=== PATIENT | female | born 1975 | race American Indian/Alaskan Native ===

== ENCOUNTER 2019-10-19 14:10 | Outpatient (CLI) | payer SELFPAY ==
--- NOTE | 2019-10-19 14:26 | MM_ITS ---
WS: [id number] SCREENING DIGITAL MAMMOGRAM WITH CAD HISTORY: SCREENING COMPARISON: None available. Bilateral CC and MLO views submitted. Computer aided detection analyzed. Breast composition: There are scattered areas of fibroglandular density. No suspicious masses, microc alcifications or architectural distortion. MM/[place] [id number] IMPRESSION: BI-RADS: 1-Negative FOLLOW UP: 1 Year Follow-up
== END 2019-10-19 14:11 | disposition home or self-care (01) ==
PROVIDERS: PCP Family Medicine; Visit Provider Family Medicine
DX: Z12.31 Encounter for screening mammogram for malignant neoplasm of breast (principal)
CPT/HCPCS: 77067

== ENCOUNTER 2021-08-19 13:14 | Emergency (ER) | payer BC, SELFPAY ==
[2021-08-19 13:47] VITALS: BP 128/60; PULSE 76; RESP 18; O2SAT 97; BMI 32.1
--- NOTE | 2021-08-19 14:54 | ECG_ITS ---
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 Measurements Intervals [place] Rate: 70 P: 25 NH: 140 QRS: 25 QRSD: 145 T: 52 QT: 444 QTc: 481 Interpretive Statements SINUS RHYTHM RIGHT BUNDLE BRANCH BLOCK [120+ ms QRS DURATION, UPRIGHT V1, 40+ ms S IN I/aVL/V4/V5/V6] No previous ECG available for comparison Electronically Signed On 08-19-2021 22:32:52 CDT by Gisella Carmona M.D. [id number]
--- NOTE | 2021-08-19 14:54 | W.ED.SYNCOPE ---
HPI - Syncope General: Chief Complaint: Syncope Stated Complaint: SYNCOPE Time Seen by Provider: 08/19/21 13:27 History of Present Illness: 45 yo f states she was working at her father's house in a very hot area where the dryer vented and lost consciousness. Patient has amnesia until the ambulance arrived. She currently feels back to normal. Patient thinks she just got overheated and notes she had not had anything to eat/drink in the morning. SHe's completed 1L of NS. Patient does not want a work-up but is amenable to EKG. SHe says when she got here her legs felt numb. Now back to normal. Associated symptoms: Deny abdominal pain, chest pain, fever(s), headache(s) or nausea Review of Systems General: Reports: 10 or more systems reviewed and unremarkable except in HPI and below Const: Denies: fever(s), chills or body aches Eyes: Denies: change in vision ENMT: Denies: throat pain Card: Denies: chest pain or edema Resp: Denies: dyspnea or productive cough GI: Denies: abdominal pain, nausea, vomiting or diarrhea : Denies: flank pain, dysuria or urinary frequency Musc: Denies: neck pain, back pain, extremity pain or extremity swelling Skin/Breast: Denies: rash or erythema Neuro: Denies: headache(s), weakness in extremities, lack of coordination or difficulty walking PFS ED PFSH: Medical History (Updated 08/19/21 @ 15:23 by Abhijit Donaldson MD) Anxiety Chest pain Elevated blood pressure reading RBBB Stress Surgical History H/O laparoscopy Family History Father Diabetes Heart disease Hypertension Mother Diabetes Heart disease Hypertension Social History Smoking and tobacco status: never smoked Physical Exam Const: COMMON NORMALS: no limitations, alert and well nourished EXAM LIMITATIONS: no altered mental status GENERAL APPEARANCE: cooperative and well developed ORIENTATION/CONSCIOUSNESS: Yes awake; not confused HENMT: COMMON NORMALS: normocephalic, atraumatic, external ears normal and Normal external nose present HEAD & SCALP: normal to inspection, normocephalic and atraumatic FACE & SINUS: face symmetric NOSE: Normal external nose present EXTERNAL EAR: Yes external ears normal MOUTH: lip normal; no muffled voice Eye: COMMON NORMALS: EOMs intact bilaterally and conjunctivae normal GENERAL EYE: appearance normal, both eyes and all related structures CONJUNCTIVA: Yes conjunctivae normal Neck/C-Spine: COMMON NORMALS: no JVD GENERAL: Yes normal visual inspection and Yes trachea midline Resp: COMMON NORMALS: normal respiratory effort, No use of accessory muscles and clear to auscultation bilaterally EFFORT & INSPECTION: Yes able to speak in complete sentences and Yes symmetric chest movement AUSCULTATION: clear to auscultation bilaterally Cardio: COMMON NORMALS: no JVD, regular rate and regular rhythm RATE: regular rate RHYTHM: regular rhythm PERIPHERAL PULSES: radial pulses present GI: COMMON NORMALS: Soft to palpation INSPECTION: Yes normal to inspection PALPATION: Yes Soft to palpation, No Tenderness to palpation present (GI) and No Guarding due to palpation present (GI) Back/Pelvis: COMMON NORMALS: thoraco-lumbar ROM normal Extremity: COMMON NORMALS: normal to inspection GENERAL: Yes normal exam except as noted Neuro: COMMON NORMALS: moves all extremities, no focal motor deficits and no sensory deficits noted SENSORIUM/ORIENTATION: Yes alert Psych: COMMON NORMALS: mental status grossly normal, Normal thought process present, cooperative, normal affect and speech normal SPEECH: Yes normal speech THOUGHT PROCESS: Normal thought process present Skin: COMMON NORMALS: no rashes or lesions noted, turgor normal and no jaundice GENERAL SKIN EXAM: no rashes or lesions noted and turgor normal Course Vital Signs: Vital signs: Vital Signs Pulse Rate 76 08/19/21 13:47 Respiratory Rate 18 08/19/21 13:47 Blood Pressure 128/60 08/19/21 13:47 Pulse Oximetry 97 08/19/21 13:47 MDM - Syncope Medical Decision Making This is a well-appearing nontoxic pleasant 45-year-old female in no acute distress. Patient has recovered from her syncopal episode. She does not want work-up. I did convince her to get an EKG and this showed a normal sinus rhythm with a rate of 70, normal axis, no ectopy, right bundle branch block, no concerning ST segment elevations or depressions. She does report that she had not had much to eat or drink and was in a very hot environment making neurogenic syncope the most likely. However I did describe the differential diagnosis and that further work-up would be indicated. Patient reports she would rather follow-up with primary care provider. She does have a history of stress and anxiety and I am not sure whether this played into the situation today or not. She was taken off of her citalopram about 1 week ago. At this point I do not find any evidence of emergent condition. She screens negative for risk of DVT with the exception of BMI greater than 30. Discharge Plan Discharge Patient Disposition: Home Clinical Impression: Syncope and collapse, RBBB Condition: Stable Prescriptions: No Action multivitamin Tablet 1 tab PO DAILY 0RF Algal [place]-3 DHA 200 mg capsule PO 0RF citalopram 10 mg tablet 10 mg PO DAILY 0RF alprazolam 0.25 mg tablet 0.25 mg PO TID PRN (Reason: anxiety) 0RF tranexamic acid 650 mg tablet 650 mg PO BID PRN0RF metoprolol succinate 25 mg tablet extended release 24 hr 50 mg PO DAILY Qty: 180 3RF Discharge Orders: Discharge ED (Routine); Ordered 08/19/21 Ordered By: Abhijit Donaldson Referrals: Marcus Thurston MD [Primary Care Provider] - 1-3 days (SYncope. EKG NSR w/ RBBB. Didn't want further workup in ED.) Discharge Diet: Regular Discharge Activity: Increase activity as tolerated Patient Instructions: Opioid Safety Coding Level of Care Code ED Technical Support Manager for Brenda Hodges
[2021-08-19 15:23] VITALS: BP 120/89; O2SAT 96
== END 2021-08-19 15:49 | disposition home or self-care (01) ==
PROVIDERS: Emergency Provider Emergency Medicine; PCP Family Medicine
DX: R55 Syncope and collapse (principal); I45.10 Unspecified right bundle-branch block
CPT/HCPCS: 93005; 99283

== ENCOUNTER → 2021-10-09 15:30 | Outpatient (BNVA) | payer BC, SELFPAY | PROVIDERS: PCP Family Medicine; Visit Provider Obstetrics & Gynecology | DX: N93.9 Abnormal uterine and vaginal bleeding, unspecified (principal) | CPT/HCPCS: 84443; 85025; 88305 ==

== ENCOUNTER 2021-11-10 11:09 | Day surgery (SDC) | payer BC, SELFPAY ==
[2021-11-09 16:25] VITALS: BMI 34.2
[2021-11-10] VITALS (9 sets, daily range): BP systolic 131–170; BP diastolic 73–96; PULSE 68–83; RESP 14–18; TEMP 36.3–36.9; O2SAT 92–100
[2021-11-10 11:40] LABS: OR HCG Qualitative Urine Negative (Negative)
[2021-11-10] MEDS: sodium chloride 0.9% 1,000 ML 30 ML IV (11:48)
--- NOTE | 2021-11-10 12:29 | ANES.PREANE2 ---
Pre-Anesthetic Assessment Height/Weight: Height 1.7 m Weight 99.337 kg Temp Pulse Resp BP Pulse Ox O2 Del Method 98.4 F 68 18 170/95 97 11/10/21 11:37 11/10/21 11:37 11/10/21 11:37 11/10/21 11:37 11/10/21 11:37 11/10/21 11:37 Preop Diagnosis: aub, thickened endometrium Operation Date: 11/10/21 12:45 Proposed Procedures p Hysteroscopy, dilation and curettage with Myosure 66106, 80658, 37518,N93.9,R93.89(Not Applicable) - Magaly Benavides MD s Dilation And Curettage (D&C)(Not Applicable) - Magaly Benavides MD Familial anesthetic complications: none Was Beta Allie taken within 24 hours: Yes Was Clonidine taken within 24 hours: N/A Last intake: Intake Last Liquid Date 11/09/21 Last Liquid Time 17:00 Last Solid Date 11/09/21 Last Solid Time 17:00 Social No alcohol and No tobacco Exam alert, oriented x 3, clear to auscultation bilaterally and regular rate & rhythm Airway Submandibular: within normal limits Cervical ROM: within normal limits Mallampati: Class II Dentition: full CV/HEM Hypertension Metabolic Morbid Obesity Anesthetic Plan ASA status: 2 Anesthesia: General Medications/Allergies Home Medications Medication Instructions Recorded Confirmed Last Taken Type citalopram 10 mg tablet 10 mg PO DAILY 03/17/21 11/10/21 11/09/21 History docosahexaenoic acid 200 mg 200 mg PO DAILY 06/17/21 11/10/21 11/09/21 History capsule (Algal [place]-3 DHA) multivitamin 1 tab PO DAILY 06/17/21 11/10/21 11/09/21 History metoprolol succinate 25 mg 25 mg PO BID 11/09/21 11/10/21 11/10/21 07:00 History tablet,extended release 24 hr Allergies Allergy/AdvReac Type Severity Reaction Status Date / Time No Known Allergies Allergy Verified 11/09/21 15:48 Current Medications Generic Name Dose Route Start Last Admin Trade Name Freq PRN Reason Stop Dose Admin Sodium Chloride 1,000 mls @ 30 mls/hr 11/10/21 11:30 11/10/21 11:48 Sodium Chloride 0.9% IV 11/11/21 11:29 30 mls/hr .Q24H JACKELYN Administration PFSH Anesthesia Medical History Anxiety Chest pain Elevated blood pressure reading No pertinent past medical history neghx: dm, thyroid, dvt/pe PCP: Dr. Bertrand WOODARD Stress Surgical History H/O laparoscopy History of cholecystectomy 2010 Family History Father Diabetes Heart disease Hypertension Hyperlipidemia Mother Diabetes Heart disease Hypertension Grandmother Breast cancer maternal Uterine cancer maternal and patenral Ovarian cancer maternal and paternal Cervical cancer maternal and paternal Family/Other Uterine cancer 2 cousins and 1 aunt--paternal Breast cancer paternal cousin Ovarian cancer paternal cousin Denies family history of Colon cancer Prostate cancer Bleeding disorder Thyroid disease Stroke Social History Smoking and tobacco status: never smoked Female Reproductive History Date of last menstrual period: 10/26/21 Data Anesthesia Cardiac Studies: Cardiac Event Monitor 03/17/21
--- NOTE | 2021-11-10 12:46 | W.PM.OPSUD ---
Surgery/Procedure H&P Update DATE OF PROCEDURE: November 10, 2021 DATE H&P PERFORMED: 11/09/21 H&P UPDATE INFORMATION: I have reviewed H&P completed within last 30 days, I have examined patient prior to procedure and No changes to prior documentation PREOP DIAGNOSIS: aub, thickened endometrium PLANNED PROCEDURE: Operation Date: 11/10/21 12:45 Proposed Procedures p Hysteroscopy, dilation and curettage with Myosure 45446, 73734, 31753,N93.9,R93.89(Not Applicable) - Magaly Benavides MD s Dilation And Curettage (D&C)(Not Applicable) - Magaly Benavides MD Related Problem List Diagnoses (1) Thickened endometrium: (2) Uterine leiomyoma: (3) Abnormal uterine bleeding (AUB):
[2021-11-10] MEDS: ceFAZolin 2,000 MG in sodium chloride 0.9% (plus) 50 ML 100 MG IV (12:51)
--- NOTE | 2021-11-10 13:33 | P.OP_ITS ---
Operative Report Date of procedure: November 10, 2021 Pre-op diagnosis: Preop Diagnosis aub, thickened endometrium Post-op diagnosis: same Post-op findings: endometrium with multiple fibroids and polyps Procedure done: hysteroscopy, dilation and curettage with myosure Specimens removed/disposition: endometrial curettings to pathology Surgeon: Magaly Benavides Anesthesia: MAC Estimated blood loss (mL): 0 IV fluids (mL): 400 Complications: none Findings: hysteroscopy deficit 305 ml Condition: stable Disposition: PACU Procedure: The patient was taken to the operating room where monitored anesthesia was administered and to be adequate. She was prepped and draped in the normal sterile fashion in the dorsal lithotomy position in [facility]. A weighted speculum was placed into the vagina and the anterior lip of the cervix grasped with a single-tooth tenaculum. The uterus was sounded to 8 cm. The cervix was dilated to 16 [place]. The hysteroscope was advanced into the endometrial cavity. There were multiple fibroids and some polyps visualized. The MyoSure device was activated and the tissue was removed. Pictures were taken pre and post procedure. All instruments were removed. The patient tolerated the procedure well. Sponge lap and needle counts were correct x3. She was taken to the recovery room in stable condition.
--- NOTE | 2021-11-10 13:37 | PM.DCS ---
Discharge Providers Date of Admission: 11/10/21 Date of Discharge: November 10, 2021 Attending Provider at Discharge: Magaly Benavides MD Primary Care Provider: Marcus Thurston MD Diagnoses at Discharge Discharge Diagnosis (1) Thickened endometrium: Status: Acute (2) Uterine leiomyoma: Status: Acute (3) Abnormal uterine bleeding (AUB): Status: Acute Hospital Course Hospital Course The patient was admitted for outpatient surgery. She did well postoperatively and was ready for discharge. Discharge Data Studies Completed and Pending Pending at discharge Category Date Time Status ES surgery / GI images Routine Exams 11/10/21 12:41 Ordered Laboratory Results Urine HCG, Qual Negative (Negative) 11/10/21 11:21 Vitals Last Vital Signs Temp 98.4 F 11/10/21 11:37 Pulse 68 11/10/21 11:37 Resp 18 11/10/21 11:37 BP 170/95 11/10/21 11:37 Pulse Ox 97 11/10/21 11:37 O2 Del Method 11/10/21 11:37 Discharge Plan Discharge Patient Disposition: Home Condition: Stable Prescriptions: Continued multivitamin Tablet 1 tab PO DAILY Algal [place]-3 DHA 200 mg capsule 200 mg PO DAILY citalopram 10 mg tablet 10 mg PO DAILY metoprolol succinate 25 mg tablet extended release 24 hr 25 mg PO BID Discharge Orders: Discharge Order (Routine); Ordered 11/10/21 Ordered By: Magaly Benavides Discharge Attestations Time Spent in Discharge Care*: less than 30 min Quality Metrics Clinical Quality Measures [ No reported AMI, CVA or VTE this stay] Coding Level of Care Code Acute Chg FW DC note Diagnoses Thickened endometrium R93.89 Uterine leiomyoma D25.9 Abnormal uterine bleeding (AUB) N93.9
--- NOTE | 2021-11-10 15:53 | ANE.PACU2 ---
Inpatient post-anesthesia follow up: Airway intact: Yes Vital signs: Temperature 98.0 F Pulse Rate 72 Respiratory Rate 18 Blood Pressure 133/81 Pulse Oximetry 100 Oxygen Delivery Me thod Room Air Oxygen Flow Rate Fraction of Inspir ed Oxygen Hydration adequate: Yes Nausea and vomiting: No Pain level: 2 Mental status: Baseline
== END 2021-11-10 14:50 | disposition home or self-care (01) ==
PROVIDERS: Anesthesiology; PCP Family Medicine; Visit Provider Obstetrics & Gynecology
PROC: 0UDB8ZZ Extraction of Endometrium, Via Natural or Artificial Opening Endoscopic (ICD-10-PCS; CPT 58558; principal; 2021-11-10 12:35)
PROC: (CPT 58120; 2021-11-10 12:35)
DX: R93.89 Abnormal findings on diagnostic imaging of other specified body structures (principal); D25.9 Leiomyoma of uterus, unspecified; N93.9 Abnormal uterine and vaginal bleeding, unspecified; I10 Essential (primary) hypertension; E66.01 Morbid (severe) obesity due to excess calories; Z68.34 Body mass index [BMI] 34.0-34.9, adult
CPT/HCPCS: 58558; 81025; 84703; 88305; J1100; J2250; J2405; J2704; J3010; J7030

== ENCOUNTER 2022-01-25 13:00 | Outpatient (CLI) | payer BC, SELFPAY | END 2022-01-25 13:01 | disposition home or self-care (01) | LOC: SLEEP 01-26 15:01 | PROVIDERS: PCP Family Medicine; Visit Provider Internal Medicine Cardiovascular Disease | DX: G47.10 Hypersomnia, unspecified (principal) | CPT/HCPCS: G0399 ==

== ENCOUNTER 2022-06-10 12:24 | Outpatient (CLI) | payer BC, SELFPAY ==
--- NOTE | 2022-06-10 12:42 | CT_ITS ---
WS: [id number] CT HEAD TECHNIQUE: Noncontrast and contrast-enhanced CT of the head. CLINICAL INFORMATION: ACUTE LYMPHADENITIS COMPARISON: 2013 DLP: 2039.[address] scans at [facility] use at least one of these dose optimization techniques: automated e xposure control; mA and/or kV adjustment per patient size (includes targeted exams where dose is matc hed to clinical indication); or iterative reconstruction. FINDINGS: No evidence of intracranial hemorrhage or mass effect. Ventricular system and basal cisterns are ray nt. Benign magna cisterna magna. No abnormal intracranial enhancement. No enhancing intracranial lesi ons. No extra-axial fluid collections. Paranasal sinuses are well aerated. Mastoid air cells are well aerated. CT/CT head wo/w con [id number] IMPRESSION: 1. No evidence of hemorrhage or mass effect. 2. No abnormal intracranial enhancement. 3. No acute intracranial findings and no significant changes since 2013.
[2022-06-10] MEDS: iohexol 350 mg/mL 500 mL Btl (per mL) IV (13:01)
== END 2022-06-10 12:25 | disposition home or self-care (01) ==
PROVIDERS: PCP Family Medicine; Visit Provider Nurse Practitioner Family
DX: L04.9 Acute lymphadenitis, unspecified (principal)
CPT/HCPCS: 70470; Q9967

== ENCOUNTER 2022-09-27 14:08 | Outpatient (CLI) | payer OTHER, SELFPAY ==
--- NOTE | 2022-09-27 14:14 | MM_ITS ---
WS: [id number] BILATERAL 3D TOMOSYNTHESIS DIGITAL SCREENING MAMMOGRAPHY WITH CAD CLINICAL INFORMATION: SCREENING HISTORY: Screening mammogram. Chronic breast pain and soreness. COMPARISON: 2020 TECHNIQUE: Bilateral CC and MLO views. FINDINGS: Scattered fibroglandular densities bilaterally. No suspicious focal mass, asymmetry, calcifications, or architectural distortion. No evidence of malignancy. MM/[place] [id number] IMPRESSION: BI-RADS: 1-Negative FOLLOW UP: 1 Year Follow-up Recommend return to annual screening mammography.
== END 2022-09-27 14:09 | disposition home or self-care (01) ==
PROVIDERS: PCP Family Medicine; Visit Provider Family Medicine
DX: Z12.31 Encounter for screening mammogram for malignant neoplasm of breast (principal)
CPT/HCPCS: 77063; 77067

== ENCOUNTER 2022-10-14 15:48 | Outpatient (CLI) | payer OTHER, SELFPAY ==
--- NOTE | 2022-10-14 16:03 | CT_ITS ---
WS: [id number] CT LUMBAR SPINE, noncontrast. HISTORY: SPINAL STENOSIS OF LUMBAR REGION TECHNIQUE: Contiguous 2.0 mm axial imaging are performed. Sagittal and coronal reformats are submitte d and reviewed. All CT scans at [facility] use at least one of these dose optimization techni ques: automated exposure control; mA and/or kV adjustment per patient size (includes targeted exams w here dose is matched to clinical indication); or iterative reconstruction. IV contrast: None DLP: 881.00 mGy.cm COMPARISON: None available. Normal lumbar alignment with no loss of disc space height or vertebral body height. Moderate facet lotus int arthritis at L4-5 and L5-S1. T11-12 and T12-L1: Bilateral facet joint arthritis. At the T11-12 level there is mild central and julia ateral foraminal stenosis. Predominantly due to encroachment by facet joint osteophytes. L1-2: Very mild facet arthritis. No stenosis. L2-3: Mild annular disc bulging and facet joint arthritis. No stenosis. L3-4: Diffuse annular disc bulging encroaching upon the ventral thecal sac and subarticular recesses. Mild bilateral facet joint arthritis. There is very mild central and subarticular recess narrowing. L4-5: Mild annular disc bulging is asymmetric to the RIGHT. Mild disc encroachment upon the subarticu lar recesses and the ventral thecal sac. Mild central with bilateral subarticular recess and foramina l stenosis. Moderate bilateral facet joint arthritis. L5-S1: Diffuse annular disc bulging with marked bilateral facet joint arthritis. RIGHT facet joint os teophyte encroaching within the proximal RIGHT foramen contacting the exiting RIGHT L5 nerve root. No significant contact on the S1 nerve roots. Moderate RIGHT and mild LEFT foraminal stenosis. Scattered calcifications within the aorta. CT/CT lumbar spine wo con* [id number] IMPRESSION: 1. No high-grade central stenosis. 2. RIGHT facet joint osteophyte with moderate encroachment into the RIGHT L5-S 1 foramina and contacting the exiting RIGHT L5 nerve root. Moderate RIGHT and m ild LEFT foraminal stenosis at L5-S1. 3. Moderate facet joint arthritis at L4-5 and L5-S1. 4. Mild central, bilateral subarticular recess and foraminal stenosis at L4-5. 5. Mild central and subarticular recess stenosis at L3-4. 6. At T11-12 mild central and bilateral foraminal stenosis due to facet joint osteophyte disease.
== END 2022-10-14 15:49 | disposition home or self-care (01) ==
LOC: RAD 15:56
PROVIDERS: PCP Family Medicine; Visit Provider Family Medicine
DX: M48.07 Spinal stenosis, lumbosacral region (principal); M47.817 Spondylosis without myelopathy or radiculopathy, lumbosacral region; M25.78 Osteophyte, vertebrae
CPT/HCPCS: 72131

== ENCOUNTER 2023-05-03 14:37 | Outpatient (CLI) | payer OTHER, SELFPAY ==
--- NOTE | 2023-05-03 14:51 | XR_ITS ---
WS: [id number] XR hip LT 2-3V wo/w pel* [id number] REASON FOR EXAM: M16.9 - Osteoarthritis of hip, unspecified FINDINGS: No fracture or focal bone lesion. Mild narrowing of the joint space with mild subchondral sclerosis, moderate osteophytosis of the acet abulum. There is mild to moderate osteophytosis of the femoral head. No soft tissue abnormality. IMPRESSION: Moderate osteoarthritis of the left hip.
== END 2023-05-03 14:38 | disposition home or self-care (01) ==
LOC: RAD 14:39
PROVIDERS: PCP Family Medicine; Visit Provider Anesthesiology Pain Medicine
DX: M16.12 Unilateral primary osteoarthritis, left hip (principal)
CPT/HCPCS: 73502

== ENCOUNTER → 2023-12-26 16:06 | Outpatient (BNVA) | payer MEDICAID, SELFPAY | PROVIDERS: PCP Family Medicine; Visit Provider Obstetrics & Gynecology | DX: N92.1 Excessive and frequent menstruation with irregular cycle (principal) | CPT/HCPCS: 83001; 84146; 84702; 85025 ==

== ENCOUNTER → 2024-06-13 10:34 | Outpatient (BNVA) | payer MEDICAID, OTHER, SELFPAY | PROVIDERS: PCP Family Medicine; Visit Provider Podiatrist Foot & Ankle Surgery | DX: M79.671 Pain in right foot (principal); S93.601A Unspecified sprain of right foot, initial encounter; W01.0XXA Fall on same level from slipping, tripping and stumbling without subsequent striking against object, initial encounter | CPT/HCPCS: 73630 ==

== ENCOUNTER 2025-03-15 14:11 | Outpatient (CLI) | payer OTHER, SELFPAY ==
--- NOTE | 2025-03-15 14:16 | CT_ITS ---
WS: [id number] CT ABDOMEN AND PELVIS WITH CONTRAST HISTORY: FATTY LIVER DZ,NONALCOHOLIC TECHNIQUE: Imaging performed of the abdomen and pelvis with IV contrast. Single phase imaging of the abdomen. Coronal and sagittal reformats are submitted. All CT scans at [facility] use at least one of these dose optimization techniques: automated exposure control; mA and/or kV adjustment per patient size (includes targeted exams where dose is matched to clinical indication); or iterative reconstruction. IV CONTRAST: Omnipaque 350; 100 mL IV. Oral contrast: No DLP: 789.13 mGy.cm COMPARISON: 07/05/2011 Lower thorax: Lung bases are clear. Heart is normal size. Small hiatal hernia. Liver/biliary system: Normal size with no intrahepatic dilatation. Gallbladder: Prior cholecystectomy. Pancreas: Normal size pancreas and pancreatic duct. No adjacent inflammation. Spleen: Normal size spleen. No mass or infarct. Adrenal glands: Normal. Right kidney: Normal. Left kidney: Normal. Aorta: Mild atherosclerosis with no aneurysm. Lymphadenopathy: None. Free fluid: None. GI tract: Stomach is distended with food products. High density material in the stomach is probably medicinal. No small bowel obstruction. No colon obstruction. No colitis. Abdominal wall: Unremarkable abdominal wall. No hernia. Pelvis: Prior hysterectomy. RIGHT adnexal well-circumscribed low-attenuation mass measures 3.3 x 4.1 cm consistent with an ovarian cyst. Bones: Unremarkable. CT/CT abdomen pelvis w con* [id number] IMPRESSION: 1. Prior cholecystectomy. 2. No renal obstruction. 3. Normal liver. 4. No GI tract obstruction. 5. RIGHT ovarian cyst 3.3 x 4.1 cm.
[2025-03-15] MEDS: iohexol 350 mg/mL 500 mL Btl (per mL) IV (14:25)
== END 2025-03-15 14:12 | disposition home or self-care (01) ==
LOC: RAD 14:11
PROVIDERS: PCP Family Medicine; Visit Provider Family Medicine
DX: K76.0 Fatty (change of) liver, not elsewhere classified (principal); Z90.49 Acquired absence of other specified parts of digestive tract; N83.202 Unspecified ovarian cyst, left side; Z90.710 Acquired absence of both cervix and uterus
CPT/HCPCS: 74177